=== PATIENT | female | born 1980 | race African-American/Black ===

== ENCOUNTER 2021-03-22 09:09 | Inpatient (IN) | payer MEDICAID, OTHER ==
[~2021-03-22] VITALS: Ht 167.6 cm; Wt 111.6 kg
[2021-03-22 09:51] LABS: BASOPHILS % (AUTO) 0.6 % (0.0-2.0); EOSINOPHILS % (AUTO) 0.9 % (1.0-6.0); HEMATOCRIT 38.2 % (36-46); HEMOGLOBIN 12.2 g/dL (12.0-16.0); LYMPHOCYTES # (AUTO) 2.1 K/uL (1.0-4.8); LYMPHOCYTES % (AUTO) 24.7 % (22.0-44.0); MEAN CORPUSCULAR HEMOGLOBIN 27.1 pg (26.0-34.0); MEAN CORPUSCULAR VOLUME 85 fL (80-100); MONOCYTES # (AUTO) 0.6 K/uL (0.1-1.0); MONOCYTES % (AUTO) 7.4 % (2.0-9.0); NEUTROPHILS # (AUTO) 5.6 K/uL (1.8-7.7); NEUTROPHILS % (AUTO) 66.4 % (40.0-70.0); PLATELET COUNT (AUTO) 405 K/uL (150-450); RED BLOOD CELL COUNT(AUTO) 4.52 MIL/uL (4.00-5.20); RED CELL DISTRIBUTION WIDTH 14.9 % (11.5-14.5)
[2021-03-22 10:01] LABS: ANION GAP 8 mmol/L (8-16); CALCIUM, TOTAL 8.8 mg/dL (8.8-10.5); CARBON DIOXIDE 28 mmol/L (22-29); CHLORIDE 106 mmol/L (98-107); CREATININE 0.73 mg/dL (0.60-1.30); GLOMERULAR FILTR. RATE CALC > 60 mL/min (>60); GLUCOSE,RANDOM 97 mg/dL (70-110); POTASSIUM 4.2 mmol/L (3.5-5.1); SODIUM SERUM 142 mmol/L (136-145); UREA NITROGEN, BLOOD 10 mg/dL (7-18)
[2021-03-22 10:12] LABS: ALANINE AMINOTRANSFERASE 18 U/L (12-78); ALBUMIN 3.2 g/dL (3.4-5.0); ALKALINE PHOSPHATASE 134 U/L (46-116); ASPARTATE AMINOTRANSFERASE 13 U/L (15-37); BILIRUBIN,TOTAL 0.2 mg/dL (0.1-1.0); HCG,QUANTITATIVE 1 mIU/mL (0-6); TOTAL PROTEIN, SERUM 7.4 g/dL (6.4-8.2)
[2021-03-22 11:15] LABS: COVID AG,FIA SOURCE NASOPHARYNGEAL
[2021-03-22] MEDS ORDERED: LORazepam 2 MG TABLET PO PRN (11:45)
[2021-03-22] MEDS ORDERED: ZOLPIDEM TARTRATE 10 MG TABLET PO PRN (11:45)
[2021-03-22] MEDS ORDERED: PROMETHAZINE HCL 25 MG TABLET PO PRN (11:45)
[2021-03-22] MEDS ORDERED: MAGNESIUM HYDROXIDE SUSPENSION 30 ML UDCUP PO PRN (11:45)
[2021-03-22] MEDS ORDERED: HydrOXYzine PAMOATE 50 MG CAPSULE PO PRN (11:45)
[2021-03-22] MEDS ORDERED: GuaiFENesin/D-METHORPHAN [SUGAR-FREE] 200-20MG/10 ML SYRUP UDCUP PO PRN (11:45)
[2021-03-22] MEDS ORDERED: ACETAMINOPHEN 325 MG TABLET PO PRN (11:45)
[2021-03-22] MEDS ORDERED: TUBERCULIN, PURIFIED PROTEIN DERIVATIVE 5 TU/0.1 ML SYRINGE ID ONE (11:45)
[2021-03-22] MEDS ORDERED: LOPERAMIDE HCL 2 MG CAPSULE PO PRN (11:45)
[2021-03-22] MEDS ORDERED: OLANZapine 5 MG RAPDIS TABLET PO PRN (11:45)
[2021-03-22] MEDS ORDERED: MAG HYDROX/AL HYDROX/SIMETH ES 30 ML SUSPENSION UDCUP PO PRN (11:45)
[2021-03-22 16:18] VITALS: BP 103/68
[2021-03-22] MEDS: THIAMINE 100 MG TABLET PO SCH (16:43)
[2021-03-22] MEDS: MELATONIN 5 MG TABLET PO SCH (20:47)
[2021-03-22] MEDS: OLANZapine 5 MG RAPDIS TABLET PO SCH (20:48)
[2021-03-22] MEDS: SERTRALINE HCL 50 MG TABLET PO SCH (20:48)
[2021-03-23 00:20] VITALS: BP 110/68
[2021-03-23 07:27] LABS: HEMOGLOBIN A1C 5.4 % (3.8-5.6)
[2021-03-23 07:41] LABS: FREE T4 (FREE THYROXINE) 0.93 ng/dL (0.76-1.46); THYROID STIMULATING HORMONE 2.48 uIU/mL (0.36-3.74)
[2021-03-23] MEDS ORDERED: PNEUMOCOCCAL VACCINE POLYVALENT 0.5 ML VIAL [PPSV23] IM. ONE (08:15)
[2021-03-23] MEDS ORDERED: INFLUENZA VIRUS VACCINE QVS 2021-22 (6MO+)/PF 60 MCG/0.5 ML SYRINGE IM. ONE (08:15)
[2021-03-23 08:37] VITALS: BP 116/61
[2021-03-23] MEDS: OMEGA-3/DHA/EPA/FISH OIL 1,000 MG CAPSULE PO SCH (08:51)
[2021-03-23] MEDS: NALTREXONE HCL 50 MG TABLET PO SCH (08:51)
[2021-03-23] MEDS: MULTIVITAMINS WITH MINERALS, THERAPEUTIC TABLET PO SCH (08:51)
[2021-03-23] MEDS: FOLIC ACID 1 MG TABLET PO SCH (08:51)
[2021-03-23] MEDS: THIAMINE 100 MG TABLET PO SCH ×2 (08:52→16:45)
[2021-03-23 16:27] VITALS: BP 128/78
[2021-03-23] MEDS: OLANZapine 5 MG RAPDIS TABLET PO SCH (20:51)
[2021-03-23] MEDS: MELATONIN 5 MG TABLET PO SCH (20:51)
[2021-03-23] MEDS: SERTRALINE HCL 50 MG TABLET PO SCH (20:51)
[2021-03-24 01:05] VITALS: BP 103/62
[2021-03-24 08:28] VITALS: BP 114/61
[2021-03-24] MEDS: THIAMINE 100 MG TABLET PO SCH ×2 (09:07→16:20)
[2021-03-24] MEDS: MULTIVITAMINS WITH MINERALS, THERAPEUTIC TABLET PO SCH (09:07)
[2021-03-24] MEDS: OMEGA-3/DHA/EPA/FISH OIL 1,000 MG CAPSULE PO SCH (09:07)
[2021-03-24] MEDS: FOLIC ACID 1 MG TABLET PO SCH (09:07)
[2021-03-24] MEDS: NALTREXONE HCL 50 MG TABLET PO SCH (09:08)
[2021-03-24 16:39] VITALS: BP 104/64
[2021-03-24] MEDS: DOXYCYCLINE HYCLATE 100 MG TABLET PO SCH (17:56)
[2021-03-24] MEDS: SERTRALINE HCL 50 MG TABLET PO SCH (20:28)
[2021-03-24] MEDS: MELATONIN 5 MG TABLET PO SCH (20:28)
[2021-03-24] MEDS: OLANZapine 10 MG RAPDIS TABLET PO SCH (20:29)
[2021-03-25 00:54] VITALS: BP 104/61
[2021-03-25 08:30] VITALS: BP 116/72
[2021-03-25] MEDS: MULTIVITAMINS WITH MINERALS, THERAPEUTIC TABLET PO SCH (11:10)
[2021-03-25] MEDS: FOLIC ACID 1 MG TABLET PO SCH (11:10)
[2021-03-25] MEDS: THIAMINE 100 MG TABLET PO SCH ×2 (11:10→16:19)
[2021-03-25] MEDS: OMEGA-3/DHA/EPA/FISH OIL 1,000 MG CAPSULE PO SCH (11:10)
[2021-03-25] MEDS: DOXYCYCLINE HYCLATE 100 MG TABLET PO SCH ×2 (11:10→16:19)
[2021-03-25] MEDS: NALTREXONE HCL 50 MG TABLET PO SCH (11:10)
[2021-03-25] MEDS ORDERED: NALT50TA PO (16:22)
[2021-03-25] MEDS ORDERED: OMEG-135 PO (16:22)
[2021-03-25] MEDS ORDERED: OLAN10TA26 PO (16:22)
[2021-03-25] MEDS ORDERED: MELA5TAB40 PO (16:22)
[2021-03-25] MEDS ORDERED: SERT-439 PO (16:22)
[2021-03-25 16:32] VITALS: BP 121/73
[2021-03-25] MEDS: MELATONIN 5 MG TABLET PO SCH (20:24)
[2021-03-25] MEDS: OLANZapine 10 MG RAPDIS TABLET PO SCH (20:24)
[2021-03-25] MEDS: SERTRALINE HCL 50 MG TABLET PO SCH (20:24)
[2021-03-25] MEDS ORDERED: SERT-162 PO (20:57)
[2021-03-25] MEDS ORDERED: SERTRALINE HCL 100 MG TABLET PO SCH (21:00)
[2021-03-26 00:53] VITALS: BP 110/62
[2021-03-26 08:31] VITALS: BP 109/60
[2021-03-26] MEDS ORDERED: MELA5TAB40 PO (08:36)
[2021-03-26] MEDS ORDERED: NALT50TA6 PO (08:36)
[2021-03-26] MEDS ORDERED: OLAN10TA26 PO (08:38)
[2021-03-26] MEDS ORDERED: OMEG-135 PO (08:40)
[2021-03-26] MEDS ORDERED: SERT-162 PO (08:41)
[2021-03-26] MEDS ORDERED: DOXY-354 PO (08:51)
[2021-03-26] MEDS: DOXYCYCLINE HYCLATE 100 MG TABLET PO SCH (09:33)
[2021-03-26] MEDS: THIAMINE 100 MG TABLET PO SCH (09:34)
[2021-03-26] MEDS: NALTREXONE HCL 50 MG TABLET PO SCH (09:34)
[2021-03-26] MEDS: FOLIC ACID 1 MG TABLET PO SCH (09:34)
[2021-03-26] MEDS: OMEGA-3/DHA/EPA/FISH OIL 1,000 MG CAPSULE PO SCH (09:34)
[2021-03-26] MEDS: MULTIVITAMINS WITH MINERALS, THERAPEUTIC TABLET PO SCH (09:34)
== END 2021-03-26 10:10 | disposition home or self-care (01) | DRG 750 ==
LOC: EMS 09:09 → B2S 11:16
PROVIDERS: ADMIT Psychiatry & Neurology Psychiatry; ATTEND Psychiatry & Neurology Psychiatry
DX: F25.9 Schizoaffective disorder, unspecified (principal); E88.09 Other disorders of plasma-protein metabolism, not elsewhere classified; R45.851 Suicidal ideations; F32.A Depression, unspecified; A51.0 Primary genital syphilis; F15.90 Other stimulant use, unspecified, uncomplicated; F60.0 Paranoid personality disorder; K59.00 Constipation, unspecified; Z20.822 Contact with and (suspected) exposure to COVID-19; Z55.9 Problems related to education and literacy, unspecified; Z59.9 Problem related to housing and economic circumstances, unspecified; Z65.3 Problems related to other legal circumstances; Z87.891 Personal history of nicotine dependence; Z88.0 Allergy status to penicillin; Z79.899 Other long term (current) drug therapy
CPT/HCPCS: 80053; 83036; 84439; 84443; 84702; 85025; 86592; 86593; 86780; 90686; 90732; 99285; G0480; Q9967